=== PATIENT | female | born 1950 | race Caucasian/White ===

== ENCOUNTER 2019-07-22 08:42 | Outpatient (CLI) | payer MEDICARE, SELFPAY ==
--- NOTE | 2019-07-22 09:15 | USCV_ITS ---
Judith Mejia Age: 69 Gender: F : 1950 Exam Date: 07/22/2019 09:28 Ordering Phys: Roxy Hines NP Technologist: Lacey West [place] [facility] [place] STENOS[place] Risk Factors: Previous Vascular Surgery: Right Brachial BP: / Left Brachial BP: / Right Left Velocity (cm/s) Spectral Plaque Velocity (cm/s) Spectral Plaque Syst/Diast Broadening Syst/Diast Broadening 48.50/ 11.00 Prox CCA 93.90 / 9.30 68.40/ 19.80 Mid CCA 54.80 / 18.60 243.80/45.60 Distal CCA 86.40 / 22.30 93.50/ 12.90 Prox ICA 103.00/ 38.20 77.30/ 25.80 Mid ICA 99.20 / 30.50 75.70/ 29.00 Distal ICA 77.60 / 30.50 125.70 ECA 79.90 1.37 ICA/CCA 1.88 Antegrade Vertebral Antegrade 70.90/ 19.30 cm/s 16.50/ 7.10 cm/s Tri Subclavian Tri 54.80 28.60 FINDINGS Comparison:. 04/17/18. Diffuse bilateral scattered calcified plaque and intimal thickening throughout the right common carotid artery and extending through the bifurcation. Antegrade right vertebral artery. Known left subclavian to carotid artery bypass is patent. Extensive calcified plaque and small caliber left common, internal and external carotid artery. No significant stenosis. CONCLUSIONS No interval change in stenosis since prior exam. Diffuse atherosclerosis on the left without progression. Patent left carotid/subclavian graft. No significant stenosis. Dr. Caryn Alejandra DO (Electronically Signed) Final Date: 22 July 2019 10:49 S
== END 2019-07-22 08:43 | disposition home or self-care (01) ==
PROVIDERS: Family Provider Nurse Practitioner Family; PCP Nurse Practitioner Family; Visit Provider Nurse Practitioner Family
DX: I65.23 Occlusion and stenosis of bilateral carotid arteries (principal)
CPT/HCPCS: 93880

== ENCOUNTER 2020-10-13 11:31 | Outpatient (CLI) | payer MEDICARE, SELFPAY ==
--- NOTE | 2020-10-13 11:39 | XR_ITS ---
WS: [id number] RIGHT KNEE: 3 VIEW(S) TECHNIQUE: AP, oblique(s) and lateral. HISTORY: RIGHT KNEE PAIN COMPARISON: 03/03/2013 Moderate to severe narrowing of the medial compartment with progression of degenerative changes since 2012. Joint line osteophytes most significant at the medial compartment. Mild narrowing of the later al patellofemoral compartments chondrocalcinosis in the medial lateral compartments. No fracture. No joint effusion. Scattered atherosclerotic calcifications. XR/XR knee RT 3V* [id number] IMPRESSION: 1. Moderate to severe medial joint compartment osteoarthritis. 2. Chondrocalcinosis in the medial and lateral compartments.
--- NOTE | 2020-10-13 11:39 | XR_ITS ---
WS: [id number] CHEST 2 VIEWS HISTORY: UPPER RESPIRATORY INFECTION COMPARISON: 03/21/2019 Prior CABG. Lungs: Calcified granuloma in the mid LEFT lung. No pneumonia. No pleural effusion. Cardiac size: Normal. Mediastinum/Aorta: Mild atherosclerosis aorta. Bones: Normal. XR/XR chest 2V* [id number] IMPRESSION: 1. Stable chest with mild atherosclerosis aorta. 2. Prior CABG.
== END 2020-10-13 11:32 | disposition home or self-care (01) ==
PROVIDERS: PCP Nurse Practitioner Family; Visit Provider Clinical Nurse Specialist Adult Health
DX: J06.9 Acute upper respiratory infection, unspecified (principal); M25.561 Pain in right knee; M11.261 Other chondrocalcinosis, right knee; Z95.1 Presence of aortocoronary bypass graft; I70.0 Atherosclerosis of aorta
CPT/HCPCS: 71046; 73562

== ENCOUNTER → 2021-08-29 13:45 | Outpatient (BNVA) | payer MEDICARE, SELFPAY | PROVIDERS: PCP Nurse Practitioner Family; Referring Provider Nurse Practitioner Family; Visit Provider Specialist | DX: M17.11 Unilateral primary osteoarthritis, right knee (principal); M21.161 Varus deformity, not elsewhere classified, right knee; Z87.891 Personal history of nicotine dependence | CPT/HCPCS: 73560; 73565; 99204 ==

== ENCOUNTER 2021-09-02 15:18 | Outpatient (CLI) | payer MEDICARE, SELFPAY ==
--- NOTE | 2021-09-02 15:29 | MM_ITS ---
WS: [id number] VIEWS: MLO and CC views both breasts. 3D digital tomosynthesis is also included in this exam. Comparison made with prior exam of 12/03/2013, 12/22/2015,. Findings: There was no sign of mass, architectural distortion or suspicious calcification in either breast. He terogeneously dense MM/[place] [id number] Impression: BI-RADS: 2-Benign FOLLOW-UP: 1 Year Follow-up This mammogram was also analyzed by the Computer Aided Detection System R2 Imag e Roller Repairer.
--- NOTE | 2021-09-02 15:30 | XR_ITS ---
WS: [id number] DEXA (DUAL ENERGY X-RAY ABSORPTIOMETRY) Bone mineral density was performed using a Caviar machine. HISTORY: AGE-RELATED OSTEOPOROSIS WITHOUT CURRENT PATHOLOGICAL FRACTURE COMPARISON: 01/16/2018 Lumbar spine BMD (L1-L4): 1.369 g/cm2 T score: 1.6 Z score: 2.1 Total hip BMD: Left: 0.934 g/cm2. T score: -0.6 Z score: 0.2 Right: 0.912 g/cm2. T score: -0.8 Z score: 0.0 10 year probability of a major osteoporotic fracture is 15.9%. Compared to the prior study from 01/16/2018. Lumbar spine bone mineral density has increased by 2.4%. Bilateral hips bone mineral density has decrease by 6.1%. XR/XR DEXA axial skeleton* [id number] IMPRESSION: NORMAL BONE MINERAL DENSITY based upon the WHO classification for females. Since the prior examination there has been a significant decrease in bone miner helper al density within the hips and a slight significant increase of the bone minera l density in the lumbar spine.
== END 2021-09-02 15:19 | disposition home or self-care (01) ==
LOC: RAD 15:21
PROVIDERS: PCP Nurse Practitioner Family; Visit Provider Nurse Practitioner Family
DX: Z12.31 Encounter for screening mammogram for malignant neoplasm of breast (principal); M81.0 Age-related osteoporosis without current pathological fracture
CPT/HCPCS: 77063; 77067; 77080

== ENCOUNTER → 2021-09-29 12:33 | Outpatient (BNVA) | payer MEDICARE, SELFPAY | PROVIDERS: PCP Nurse Practitioner Family; Visit Provider Internal Medicine | DX: I25.10 Atherosclerotic heart disease of native coronary artery without angina pectoris (principal); I77.9 Disorder of arteries and arterioles, unspecified; I11.0 Hypertensive heart disease with heart failure; I50.9 Heart failure, unspecified; Z87.891 Personal history of nicotine dependence | CPT/HCPCS: 99204 ==

== ENCOUNTER 2021-10-07 10:14 | Outpatient (CLI) | payer MEDICARE, SELFPAY ==
[2021-10-07 11:10] LABS: Basophils # 0.1 10^3/uL (0.0-0.1); Basophils % 0.9 %; Eosinophils # 0.2 10^3/uL (0.0-0.8); Eosinophils % 4.3 %; Hematocrit 44.4 % (37.0-47.0); Hemoglobin 13.5 g/dL (11.5-15.3); Lymphocytes # 1.3 10^3/uL (0.8-4.8); Lymphocytes % 22.8 %; Mean Corpuscular HGB Conc 30.4 g/dL (30.0-36.0); Mean Corpuscular Hemoglobin 30.2 pg (28.0-34.0); Mean Corpuscular Volume 99.3 fl (81-99); Mean Platelet Volume 10.3 fL (7.4-10.4); Monocytes # 0.6 10^3/uL (0.2-0.9); Monocytes % 10.9 %; Neutrophils # 3.41 10^3/uL (1.8-7.7); Neutrophils % 60.7 %; Nucleated Red Blood Cells % 0 %; Platelet Count 217 10^3/cmm (130-400); Red Blood Count 4.47 10^6/uL (4.1-5.3); Red Cell Distribution Width 12.9 % (12.1-15.1); White Blood Count 5.6 10^3/uL (4.0-10.0)
[2021-10-07 11:35] LABS: Alanine Aminotransferase 17 U/L (0-33); Albumin Level 4.3 g/dL (3.5-5.2); Alkaline Phosphatase 102 IU/L (35-105); Blood Urea Nitrogen 24 mg/dL (8-23); Calcium 9.6 mg/dL (8.5-10.5); Carbon Dioxide 21 mmol/L (22-29); Chloride 103 mmol/L (98-107); Globulin 3.4 g/dL (1.3-4.6); Glucose 104 mg/dL (65-115); Osmolality Calculated 286 mOsm/kg (285-295); Sodium 136 mmol/L (136-145); Total Bilirubin 0.3 mg/dL (0.15-1.2); Total Protein 7.7 g/dL (6.6-8.7)
[2021-10-07 11:37] LABS: Anion Gap 16.9 (5-19); Potassium 4.9 mmol/L (3.5-5.1)
[2021-10-07 11:38] LABS: Aspartate Amino Transferase 26 U/L (0-32)
[2021-10-07 11:42] LABS: T3 Free 2.8 PG/ML (2.0-4.4)
[2021-10-07 12:25] LABS: Creatinine Urine, Random 270 mg/dL (28-217); Microalbum Creatinine Ratio Ur 11 mg/dL (0-20); Microalbumin Random Urine 3 ug/dL (0-20)
== END 2021-10-07 10:15 | disposition home or self-care (01) ==
PROVIDERS: PCP Nurse Practitioner Family; Visit Provider Nurse Practitioner Family
DX: I10 Essential (primary) hypertension (principal); E03.9 Hypothyroidism, unspecified
CPT/HCPCS: 80053; 82044; 84439; 84481; 85025

== ENCOUNTER 2022-01-13 06:00 | Outpatient (CLI) | payer MEDICARE, SELFPAY | END 2022-01-13 23:00 | disposition home or self-care (01) | LOC: RAD 03-13 12:41 | PROVIDERS: PCP Family Medicine; Visit Provider Internal Medicine | DX: E04.1 Nontoxic single thyroid nodule (principal); I10 Essential (primary) hypertension | CPT/HCPCS: 80053; 84443 ==

== ENCOUNTER 2022-02-23 13:46 | Outpatient (CLI) | payer MEDICARE, SELFPAY ==
--- NOTE | 2022-02-23 13:45 | USCV_ITS ---
Judith Mejia Age: 71 Gender: F : 1950 Exam Date: 02/23/2022 14:48 Ordering Phys: Tomy Levy M.D ([email or web address]) Technologist: Daryl Swenson Exam Location: [facility] – [place] Indication: sob BP: 134 / 82 HR: 52 Rhythm: Sinus Technical Quality: Adequate MEASUREMENTS (Male / Female) Normal Values 2D ECHO LV Diastolic Diameter PLAX 5.4 cm 4.2 - 5.9 / 3.9 - 5.3 cm LV Systolic Diameter PLAX 3.9 cm IVS Diastolic Thickness 0.7 cm 0.6 - 1.0 / 0.6 - 0.9 cm IVS Systolic Thickness 0.9 cm LVPW Diastolic Thickness 1.3 cm 0.6 - 1.0 / 0.6 - 0.9 cm LVPW Systolic Thickness 1.6 cm LVOT Diameter 2.0 cm LV Ejection Fraction 2D Teich 55.5 % LV Ejection Fraction MOD 2C 63.5 % LV Ejection Fraction 2C AL 64.2 % LA Diameter 4.0 cm LA Width 4.4 cm LA Height 4.2 cm RA Width 3.3 cm RA Height 3.9 cm Aorta at Sinotubular Diameter 2.1 cm M-MODE Aortic Annulus Diameter 2.3 cm LA Ao Ratio MM 2.0 MV E Point Septal Separation 0.5 cm DOPPLER AV Peak Velocity 149.7 cm/s LVOT Peak Velocity 124.0 cm/s AV Area Cont Eq vti 2.7 cm squared AV Area Cont Eq pk 2.6 cm squared MV Peak Velocity 115.0 cm/s MV Area PHT 5.4 cm squared Mitral E to A Ratio 1.1 MV E' Velocity 50.5 cm/s Mitral E to MV E' Ratio 7.7 Mitral E to LV E' Lateral Ratio 5.7 Mitral E to LV E' Septal Ratio 11.8 TR Peak Velocity 342.9 cm/s TR Peak Gradient 47.0 mmHg TR Mean Velocity 265.7 cm/s TR Mean Gradient 30.8 mmHg TR Velocity Time Integral 115.6 cm Right Atrial Pressure 8.0 mmHg Pulmonary Artery Systolic Pressu 55.0 mmHg PV Peak Velocity 100.0 cm/s RV Acceleration Time 0.1 s RV Ejection Time 0.4 s RV AcT/ET 0.3 FINDINGS Left Ventricle Left ventricle is mildly dilated. LV systolic function is normal with EF of 55 to 60%. No regional wall motion abnormalities are seen. Right Ventricle Normal in size and function Right Atrium Normal in size Left Atrium Normal in size Mitral Valve Structurally normal mitral valve. Mild mitral valve regurgitation. Aortic Valve Structurally normal aortic valve. No significant stenosis or regurgitation. Tricuspid Valve Mild tricuspid regurgitation. RVSP is 50-55mmHg. This is consistent with moderate pulmonary hypertension. Pulmonic Valve Not well visualized. Trace pulmonic regurgitation. Pericardium Normal Aorta Normal in size IVC Not well visualized CONCLUSIONS Left ventricle is mildly dilated. LV systolic function is normal with EF 55 to 60%. Mild mitral regurgitation Mild tricuspid regurgitation. Moderate pulmonary hypertension Trace pulmonic regurgitation. Compared to prior echocardiogram 2017, no significant changes are seen Tomy Levy MD (Electronically Signed) Final Date: 25 February 2022 20:31 S
--- NOTE | 2022-02-23 14:30 | USCV_ITS ---
Judith Mejia Age: 71 Gender: F : 1950 Exam Date: 02/23/2022 15:13 Ordering Phys: Tomy Levy M.D ([email or web address]) Technologist: Daryl Swenson [place] [facility] [place]: carotid artery disease Risk Factors: Previous Vascular Surgery: Left subclavian/ carotid bypass graft Right Brachial BP: / Left Brachial BP: / Right Left Velocity (cm/s) Spectral Plaque Velocity (cm/s) Spectral Plaque Syst/Diast Broadening Syst/Diast Broadening 111.70/17.10 Prox CCA 188.30/ 24.30 58.50/ 13.10 Mid CCA 278.00/ 38.70 61.80/ 9.20 Distal CCA 119.60/ 23.30 106.60/16.50 Prox ICA 155.40/ 37.30 67.70/ 19.70 Mid ICA 194.20/ 43.50 78.50/ 18.60 Distal ICA 139.80/ 29.50 95.10 ECA 99.40 1.16 ICA/CCA 0.70 Antegrade Vertebral 74.60/ 17.10 cm/s / cm/s Tri Subclavian Tri 108.1 125.7 0 0 FINDINGS Comparison:. 04/17/18, 07/22/19. Moderate bilateral plaque, left greater than right. No right ICA stenosis. Left subclavian to carotid artery bypass graft is reidentified and patent. Minimal elevation of velocity involving distal graft to carotid artery. Mild left carotid plaque. Increasing plaque and velocity in the left ICA. Prevertebral steal left waveform. CONCLUSIONS Patent left subclavian artery to carotid bypass graft. Increasing velocity and plaque in the left ICA. Continued close follow up to ensure no significant developing stenosis. Left ICA stenosis 50-69%. Right ICA stenosis < 50%. Prevertebral steal waveform left vertebral artery. Dr. Caryn Alejandra DO (Electronically Signed) Final Date: 23 February 2022 16:31 S
== END 2022-02-23 13:47 | disposition home or self-care (01) ==
LOC: RAD 13:46
PROVIDERS: PCP Family Medicine; Visit Provider Internal Medicine
DX: R06.02 Shortness of breath (principal); I25.10 Atherosclerotic heart disease of native coronary artery without angina pectoris; I65.23 Occlusion and stenosis of bilateral carotid arteries; I08.1 Rheumatic disorders of both mitral and tricuspid valves; I27.20 Pulmonary hypertension, unspecified
CPT/HCPCS: 93306; 93880

== ENCOUNTER 2022-08-04 06:57 | Outpatient (CLI) | payer MEDICARE, SELFPAY ==
--- NOTE | 2022-08-04 07:15 | USCV_ITS ---
Jackie Judith Age: 72 Gender: F : 1950 Exam Date: 08/04/2022 07:35 Ordering Phys: Tomy Levy M.D ([email or web address]) Technologist: CT Exam Location: [facility] [place] Indication: stenosis Risk Factors: Previous Vascular Surgery: Right Brachial BP: / Left Brachial BP: / Right Left Velocity (cm/s) Spectral Plaque Velocity (cm/s) Spectral Plaque Syst/Diast Broadening Syst/Diast Broadening 53.60/ 13.40 Prox CCA 122.70/ 20.00 80.40/ 15.60 Mid CCA 122.60/ 19.40 254.30/39.70 Distal CCA 81.30 / 18.10 117.40/18.20 Prox ICA 145.00/ 40.40 85.30/ 19.40 Mid ICA 152.40/ 38.90 99.50/ 22.40 Distal ICA 160.10/ 28.80 133.10 ECA 83.90 0.46 ICA/CCA 1.31 Vertebral 95.40/ 13.30 cm/s 17.60/ 15.40 cm/s Subclavian 93.70 116.9 0 FINDINGS Pt Hx of Rt Cea and bypass graft on left from subclavian to prx cca. The graft is patent and without complication. Some areas are shadowed from anterior plq. Very similar to previous Comparison 03/04 CONCLUSIONS Bypass graft is patent from subclavian to proximal CCA on left. Mild to moderate shadowing plaque. Bypass graft remains patent. Dense shadowing calcified atheromatous plaque Left CCA with stenosis in the mid and distal CCA. This could be further evaluated with CTA. Right ICA stenosis <50%. Moderate atheromatous plaque right carotid bulb/ICA. Left ICA stenosis 50-69% based on strict velocity criteria at the lower end of the range. Moderate atheromatous plaque left carotid bulb/ICA. Normal antegrade Doppler flow noted in the right vertebral artery. Biphasic Doppler flow noted in the left vertebral artery due to subclavian graft. Everett Pringle MD (Electronically Signed) Final Date: 04 August 2022 10:19 S
== END 2022-08-04 06:58 | disposition home or self-care (01) ==
LOC: RAD 07:00
PROVIDERS: PCP Family Medicine; Visit Provider Internal Medicine
DX: I65.23 Occlusion and stenosis of bilateral carotid arteries (principal)
CPT/HCPCS: 93880; 99214

== ENCOUNTER → 2022-10-06 09:22 | Outpatient (BNVA) | payer MEDICARE, SELFPAY | PROVIDERS: PCP Family Medicine; Visit Provider Family Medicine | DX: E03.9 Hypothyroidism, unspecified (principal); E78.00 Pure hypercholesterolemia, unspecified; N18.30 Chronic kidney disease, stage 3 unspecified | CPT/HCPCS: 80048; 80061; 84443 ==

== ENCOUNTER → 2023-01-04 16:15 | Outpatient (BNVA) | payer MEDICARE, SELFPAY | PROVIDERS: PCP Family Medicine; Visit Provider Internal Medicine | DX: R07.9 Chest pain, unspecified (principal); R00.1 Bradycardia, unspecified; I65.23 Occlusion and stenosis of bilateral carotid arteries; I25.10 Atherosclerotic heart disease of native coronary artery without angina pectoris; I11.0 Hypertensive heart disease with heart failure; I50.9 Heart failure, unspecified; Z87.891 Personal history of nicotine dependence | CPT/HCPCS: 93005; 99214 ==

== ENCOUNTER 2023-01-25 06:54 | Outpatient (CLI) | payer MEDICARE, SELFPAY ==
[2023-01-25 07:08] VITALS: BMI 33.9
--- NOTE | 2023-01-25 07:08 | ECG_ITS ---
[facility] Test Date: 2023-01-25 Pat Name: Judith Mejia Department: Room: Gender: Female Therapeutic Activities Services Worker: Akashberto Preston : 1950 Requested By: Tomy Levy Order Number: [id number] Narendra MD: Tomy Levy M.D. Interpretive Statements NAME OF STUDY: LEXISCAN SESTAMIBI STRESS TEST INDICATION: [Chest Pain; Shortness of Breath, ] Procedure: At the baseline, the blood pressure was 111/88 mmHg with a heart rate of 52 bpm. The electrocardiogram showed sinus bradycardia, normal axis with normal ST and T's. The Lexiscan was infused over a period of 20 seconds. A total of 0.4 mg of Lexiscan was infused. The stress phase was continued for a total of 5 minutes. Heart rate was at the end of stress phase was 67 bpm and a blood pressure of 162/83mmHg. The EKG at the peak infusion revealed normal sinus rhythm with no significant ST-T wave changes. Sestamibi was injected 20 seconds after the Lexiscan infusion. Blood pressure at the end of recovery phase was 160/76 mmHg with a heart rate of 63 bpm. Conclusion: 1. Normal EKG response to Lexiscan infusion 2. No Lexiscan induced chest pain or cardiac arrhythmia. 3. Normal blood pressure and heart rate response. 4. Sestamibi/sestamibi perfusion scan pending; see separate report. Electronically Signed On 02-08-2023 14:14:38 CDT by Tomy Levy M.D. [id number]
--- NOTE | 2023-01-25 07:09 | NMCV_ITS ---
NM bebeto perf SPECT r/s* [id number] Judith Mejia Age: 72 Gender: F : 1950 Exam Date: 01/25/2023 07:54 Ordering Phys: Tomy Levy M.D ([email or web address]) Technologist: KELVIN Meyer Exam Location: [facility] Indications: CHEST PAIN, SHORTNESS OF BREATH STRESS TEST Please [facility] IMAGE PROTOCOL Rest/Stress 1 Lexiscan Day Radiopharmaceutical Dose (mCi) Administration Site Administered by Rest: Tc-99m 10.7 IV KELVIN Meyer Sestamibi Stress:Tc-99m 32.6 IV KELVIN Diaz Sestamibi Rest: 25-Jan-2023 60 Discovery 630 Stress: 25-Jan-2023 30 Discovery 630 0.4mg Lexiscan. Images obtained in supine and prone position. SPECT RESULTS Technical Quality: Excellent Raw Data Analysis: Normal Image Corrections: No attenuation or motion correction applied Summed Stress Score: 10 Summed Rest Score: 7 Summed Difference Score: 3 PERFUSION FINDINGS There is a large in size, mostly fixed perfusion defect noted in the inferior and inferolateral joel. Large sized areas of prior infarcts in RCA and left circumflex artery territories with minimal melanie-infarct ischemia. Attenuation artifact can not well visualized. FUNCTIONAL RESULTS (calculated via Gated SPECT) Stress Image LV EF (%): 66 Stress EDV (mL):88 TID: 1.04 Stress ESV (mL):30 FUNCTIONAL FINDINGS: There is normal left ventricular systolic function. IMPRESSIONS 1. Abnormal myocardial perfusion imaging with large sized prior infarct with minimal melanie-infarct ischemia noted in the RCA and left circumflex artery territories. Attenuation artifact can not be ruled out. 2. LV systolic function is normal Tomy Levy MD (Electronically Signed) Final Date: 29 January 2023 11:32 S
[2023-01-25] MEDS: regadenoson 0.4 Mg/5 ml Syringe IVP (08:35)
[2023-01-25 08:57] VITALS: BP 160/76; PULSE 63
== END 2023-01-25 06:55 | disposition home or self-care (01) ==
PROVIDERS: PCP Family Medicine; Visit Provider Internal Medicine
DX: R07.9 Chest pain, unspecified (principal); R06.02 Shortness of breath
CPT/HCPCS: 36415; 78452; 93017; 96374; A9500; J2785

== ENCOUNTER 2023-01-26 08:14 | Outpatient (CLI) | payer MEDICARE, SELFPAY ==
--- NOTE | 2023-01-26 08:30 | CT_ITS ---
WS: [id number] CT ANGIOGRAM CAROTID ARTERIES HISTORY: Carotid stenosis TECHNIQUE: CT angiogram is performed of the carotid arteries. During arterial injection imaging is ob tained from the skull base to the aortic arch in 1.25 mm imaging. Coronal and sagittal reformats are submitted, MIP imaging also reviewed. Additional multiplanar reformats of the carotid arteries are lyons bmitted. NASCET criteria utilized. All CT scans at [facility] use at least one of these dose optimization techniques: automated exposure control; mA and/or kV adjustment per patient size (includ es targeted exams where dose is matched to clinical indication); or iterative reconstruction. CONTRAST: Omnipaque 350; 100 mL IV. DLP: 308.89 COMPARISON: 06/08/2014. Prior carotid Doppler 08/04/2022 Right carotid: Common carotid artery: Tortuous common carotid artery with plaque but no high-grade stenosis. No ulce rated plaque. Increasing near circumferential plaque towards the bifurcation. Distal RIGHT common car otid artery stenosis approximately 61%. Less plaque at the bifurcation. Bifurcation is intact. Internal carotid artery: Minimal plaque. No stenosis. External carotid artery: Patent. Left carotid: Common carotid artery: Small amount of plaque at the origin of the LEFT common carotid artery. There is tortuosity of the common carotid artery. 50% stenosis, carotid artery proximal to the anastomosis. There is a graft extending from the LEFT subclavian to the LEFT common carotid artery. Common caroti d artery is patulous at the site of the anastomosis. Increasing plaque towards the carotid bifurcatio n. Internal carotid artery: High density plaque with at least 70% stenosis involving the proximal LEFT I CA. Long segment area of plaque. External carotid artery: Patent. Right vertebral artery: Mild plaque. Dominant. Left vertebral artery: Small caliber with limited flow. There is decreased contrast opacification thr oughout the vertebral artery. Very limited contrast opacification. Subclavian arteries: Mild atherosclerosis RIGHT subclavian artery. Despite the plaque no high-grade s tenosis. LEFT subclavian artery is not visualized proximally. Carotid to subclavian graft is still pa tent. There is contrast noted distal to the anastomosis. Upper thorax: Atherosclerotic plaque within the thoracic aorta. Thyroid gland: Calcified RIGHT thyroid nodule 10 mm. Osseous structures: Unremarkable. Skull base: Negative IMPRESSION: 1. LEFT common carotid artery to subclavian artery bypass graft is patent. There is increasing plaqu e with 50% stenosis in the distal graft. Very similar to the prior study from 2015. 2. High-grade stenosis of at least 70% involving the proximal LEFT ICA. Progression of stenosis sinc e the prior study. 3. Distal RIGHT common carotid artery stenosis 61% with mild progression. 4. Very small caliber and low flow throughout the LEFT vertebral artery.
[2023-01-26 08:48] LABS: Blood Urea Nitrogen 15 mg/dL (8-23)
[2023-01-26] MEDS: iohexol 350 mg/mL 500 mL Btl (per mL) IV (08:58)
== END 2023-01-26 08:15 | disposition home or self-care (01) ==
PROVIDERS: PCP Family Medicine; Visit Provider Internal Medicine
DX: I65.23 Occlusion and stenosis of bilateral carotid arteries (principal); I77.9 Disorder of arteries and arterioles, unspecified
CPT/HCPCS: 70498; 82565; 84520; Q9967

== ENCOUNTER 2023-02-21 09:15 | Outpatient (CLI) | payer MEDICARE, SELFPAY ==
--- NOTE | 2023-02-21 09:30 | USCV_ITS ---
Judith Mejia Age: 72 Gender: F : 1950 Exam Date: 02/21/2023 09:29 Ordering Phys: Tomy Levy M.D ([email or web address]) Technologist: FABI Exam Location: [facility] [place] Indication: Bilateral Stenosis Risk Factors: Previous Vascular Surgery: Graft Placement Right Brachial BP: / Left Brachial BP: / Right Left Velocity (cm/s) Spectral Plaque Velocity (cm/s) Spectral Plaque Syst/Diast Broadening Syst/Diast Broadening 69.00/ 10.50 Prox CCA 121.70/ 24.00 63.40/ 13.90 Mid CCA 163.60/ 29.70 53.10/ 9.10 Distal CCA 178.40/ 31.90 112.20/21.70 Prox ICA 122.30/ 27.00 84.50/ 19.30 Mid ICA 120.50/ 36.00 83.30/ 18.10 Distal ICA 138.50/ 37.80 102.20 ECA 99.90 1.63 ICA/CCA 0.78 Antegrade Vertebral Antegrade 77.20/ 18.10 cm/s 25.40/ 7.70 cm/s Tri Subclavian Tri 126.7 105.8 0 0 FINDINGS Comparison:. 08/04/22 Mild elevation of systolic and diastolic velocities. Left subclavian to common carotid artery bypass graft is intact. Wavefrom is abnormal, probably due to vertical orientation of graft. Mild bilateral carotid atherosclerotic plaque. Antegrade vertebral arteries. CONCLUSIONS Bilateral ICA stenosis less than 50%. Patent left subclavian to CCA bypass graft. Mild bilateral carotid plaque. Dr. Caryn Alejandra DO (Electronically Signed) Final Date: 21 February 2023 11:14 S
== END 2023-02-21 09:16 | disposition home or self-care (01) ==
PROVIDERS: PCP Family Medicine; Visit Provider Internal Medicine
DX: I65.23 Occlusion and stenosis of bilateral carotid arteries (principal)
CPT/HCPCS: 93880

== ENCOUNTER 2023-03-08 12:36 | Outpatient (CLI) | payer MEDICARE, SELFPAY ==
--- NOTE | 2023-03-08 12:50 | XR_ITS ---
WS: [id number] Exam: XR chest 2V* [id number] Date/Time of Exam: 03/08/2023 12:50 PM Reason For Exam: chest pain, cough Comparison 10/13/2020. The lungs are clear and fully inflated. Normal cardiomediastinal silhouette. Signs of previous CABG s urgery. Degenerative changes of both shoulders. IMPRESSION: 1. No acute cardiopulmonary finding.
== END 2023-03-08 12:37 | disposition home or self-care (01) ==
LOC: RAD 12:39
PROVIDERS: PCP Family Medicine; Visit Provider Family Medicine
DX: R05.3 Chronic cough (principal); R07.9 Chest pain, unspecified
CPT/HCPCS: 71046

== ENCOUNTER → 2023-04-26 09:58 | Outpatient (BNVA) | payer MEDICARE, SELFPAY | PROVIDERS: PCP Family Medicine; Visit Provider Internal Medicine Pulmonary Disease | DX: I50.9 Heart failure, unspecified (principal); R05.3 Chronic cough; T78.40XA Allergy, unspecified, initial encounter; R06.02 Shortness of breath; Z87.891 Personal history of nicotine dependence | CPT/HCPCS: 36415; 82785; 85025; 86003; 99204 ==

== ENCOUNTER 2023-05-03 07:36 | Outpatient (CLI) | payer MEDICARE, SELFPAY ==
--- NOTE | 2023-05-03 08:00 | CT_ITS ---
WS: [id number] LDCT LUNG CANCER SCREENING TECHNIQUE: Noncontrast CT of the chest with coronal and sagittal reformatted images. CLINICAL INFORMATION: Cancer Screen COMPARISON: CT chest 2019 DLP: 119.81 mGy.cm DIvol: Mean CTDIvol: 2.80 (mGy) All CT scans at [facility] use at least one of these dose optimization techniques: automat ed exposure control; mA and/or kV adjustment per patient size (includes targeted exams where dose is matched to clinical indication); or iterative reconstruction. FINDINGS: Lungs are well aerated. No acute pulmonary infiltrates. Calcite granuloma LEFT upper lobe. A few tiny subpleural nodules in the RIGHT upper lobe and RIGHT lower lobe. Subsegmental ectasis RIGH T upper lobe. .Noncalcified nodule LEFT lower lobe measuring 6 mm. Sternotomy. CABG. Calcified RIGHT thyroid nodule. This is unchanged since 2019. Normal caliber thorac ic aorta. Aortic calcification. No mediastinal or hilar lymphadenopathy. No axillary lymphadenopathy. Cholecystectomy clips. Adrenal glands are normal. Normal GE junction. Thoracic curve. Hypertrophic ch anges thoracic spine. IMPRESSION: CT/CT lung screening [id number] LUNG-RADS: 2-Benign Appearance or Behavior FOLLOW UP: 12 Month: Continue annual screening with LDCT
== END 2023-05-03 07:37 | disposition home or self-care (01) ==
LOC: RAD 07:36
PROVIDERS: PCP Family Medicine; Visit Provider Internal Medicine Pulmonary Disease
DX: Z12.2 Encounter for screening for malignant neoplasm of respiratory organs (principal); Z87.891 Personal history of nicotine dependence
CPT/HCPCS: 71271

== ENCOUNTER → 2023-07-12 15:03 | Outpatient (BNVA) | payer MEDICARE, SELFPAY | PROVIDERS: PCP Family Medicine; Visit Provider Internal Medicine | DX: I25.10 Atherosclerotic heart disease of native coronary artery without angina pectoris (principal); I13.0 Hypertensive heart and chronic kidney disease with heart failure and stage 1 through stage 4 chronic kidney disease, or unspecified chronic kidney disease; N18.30 Chronic kidney disease, stage 3 unspecified; I50.9 Heart failure, unspecified; Z87.891 Personal history of nicotine dependence | CPT/HCPCS: 99214 ==

== ENCOUNTER → 2023-08-06 11:20 | Outpatient (BNVA) | payer MEDICARE, SELFPAY | PROVIDERS: PCP Family Medicine; Referring Provider Internal Medicine; Visit Provider Thoracic Surgery (Cardiothoracic Vascular Surgery) | DX: I65.23 Occlusion and stenosis of bilateral carotid arteries (principal); Z87.891 Personal history of nicotine dependence; I13.0 Hypertensive heart and chronic kidney disease with heart failure and stage 1 through stage 4 chronic kidney disease, or unspecified chronic kidney disease; N18.30 Chronic kidney disease, stage 3 unspecified; I50.9 Heart failure, unspecified | CPT/HCPCS: 99203 ==

== ENCOUNTER 2023-08-21 12:41 | Outpatient (CLI) | payer MEDICARE, SELFPAY ==
--- NOTE | 2023-08-21 13:00 | USCV_ITS ---
Judith Mejia Age: 73 Gender: F : 1950 Exam Date: 08/21/2023 13:06 Ordering Phys: Chun Navarro MD (Andy) [place][email or web address] [place] Technologist: ELIZ Exam Location: [facility] – [place] Indication: Known graft from lt subclavian to lt cca. Pt also has had rt endarectomy and states also on lt. Risk Factors: Unknown Previous Vascular Surgery: Pt states Rt and Lt endarectomy then another Right Brachial BP: / Left Brachial BP: / Right Left Velocity (cm/s) Spectral Plaque Velocity (cm/s) Spectral Plaque Syst/Diast Broadening Syst/Diast Broadening 58.20/ 15.40 Prox CCA 164.70/ 14.30 82.00/ 19.90 Mid CCA 166.40/ 17.80 251.70/31.70 Distal CCA 133.80/ 17.80 145.70/17.20 Prox ICA 78.70 / 11.40 76.10/ 20.20 Mid ICA 117.20/ 28.70 74.40/ 16.80 Distal ICA 119.00/ 24.80 182.00 ECA 72.80 0.60 ICA/CCA 0.90 Antegrade Vertebral Antegrade 1060 / 8.20 cm/s 17.50/ 0.00 cm/s 0.00 Bi Subclavian Bi 106.5 48.00 0 FINDINGS Comparison:. 02/21/23 Diffuse bilateral scattered calcified plaque and intimal thickening throughout the common carotid arteries and extending through the bifurcation. Extensive plaque with luminal narrowing bilateral and diffuse. Loss of diastolic waveform in the left subclavian to carotid artery. The lumen of the graft is difficult to visualize. Velocities in the common and proximal ICA's is increasing. CONCLUSIONS Progression of diffuse carotid plaque with increasing velocities. Abnormal waveform in the left subclavian to carotid artery graft Recommend CTA of carotid arteries to better visualize disease progression. Dr. Caryn Alejandra DO (Electronically Signed) Final Date: 22 August 2023 07:51 S
== END 2023-08-21 12:42 | disposition home or self-care (01) ==
LOC: RAD 12:41
PROVIDERS: PCP Family Medicine; Visit Provider Thoracic Surgery (Cardiothoracic Vascular Surgery)
DX: I65.23 Occlusion and stenosis of bilateral carotid arteries (principal)
CPT/HCPCS: 93880

== ENCOUNTER 2023-10-12 08:34 | Outpatient (CLI) | payer MEDICARE, SELFPAY ==
--- NOTE | 2023-10-12 09:45 | USCV_ITS ---
Judith Mejia Age: 73 Gender: F : 1950 Exam Date: 10/12/2023 09:22 Ordering Phys: Ana Rodrgiuez MD Technologist: Kojo Gaines [place] [facility] [place]ication: PAD RIGHT LEFT Brachial 186.00 mmHg Brachial 181.00 mmHg Pressure (mmHg) Waveform Pressure (mmHg) Waveform 194.00 TRANSIT DEPARTMENT CLERK 207.00 195.00 DPA 189.00 1.05 Ankle/Brachial Index 1.11 116.00 Pre-Exercise Toe Pressure 145.00 0.62 Pre-Exercise Toe/Brachial Index 0.78 FINDINGS Resting GUSTAVO 1.05 on the right side and 1.11 on the left side Resting TBI 0.62 on the right and 0.72 on the left CONCLUSIONS 1. Normal resting GUSTAVO with a slightly diminished resting TBI on the right side, suggesting of mild peripheral artery disease 2. Normal resting GUSTAVO and TBI on the left side suggesting no significant arterial obstruction Dr Mica Baron MD [facility] (Electronically Signed) Final Date: 15 October 2023 08:17 S
== END 2023-10-12 08:35 | disposition home or self-care (01) ==
LOC: RAD 08:34
PROVIDERS: PCP Family Medicine; Visit Provider Family Medicine
DX: I73.9 Peripheral vascular disease, unspecified (principal); K21.9 Gastro-esophageal reflux disease without esophagitis; K59.04 Chronic idiopathic constipation; R10.13 Epigastric pain
CPT/HCPCS: 93922; 99204

== ENCOUNTER → 2024-01-08 14:30 | Outpatient (BNVA) | payer MEDICARE, SELFPAY | PROVIDERS: PCP Family Medicine; Visit Provider Internal Medicine | DX: I25.10 Atherosclerotic heart disease of native coronary artery without angina pectoris (principal); I13.0 Hypertensive heart and chronic kidney disease with heart failure and stage 1 through stage 4 chronic kidney disease, or unspecified chronic kidney disease; N18.30 Chronic kidney disease, stage 3 unspecified; I50.9 Heart failure, unspecified; I65.23 Occlusion and stenosis of bilateral carotid arteries; Z87.891 Personal history of nicotine dependence | CPT/HCPCS: 99214 ==

== ENCOUNTER 2024-02-20 14:32 | Outpatient (CLI) | payer MEDICARE, SELFPAY ==
--- NOTE | 2024-02-20 14:37 | XR_ITS ---
WS: [id number] XR KUB [id number] REASON FOR EXAM: upper abd pain FINDINGS: No free air or retroperitoneal air. Unremarkable bowel gas pattern. No mass or organomegaly. No urinary tract calculi. XR/XR KUB [id number] IMPRESSION: No acute abnormality.
--- NOTE | 2024-02-20 14:37 | XR_ITS ---
WS: [id number] XR chest 2V* [id number] REASON FOR EXAM: cough, chest pain FINDINGS: The chest is unchanged compared to 03/08/2023. Sternotomy with previous aorto coronary artery bypass surgery. Calcified granulomas disease in both hemithoraces. No focal lung lesion. No acute pulmonary parenchymal or pleural abnormality. Moderate degenerative spondylosis in the mid and lower thoracic spine. XR/XR chest 2V* [id number] IMPRESSION: Stable chest without acute abnormality.
== END 2024-02-20 14:33 | disposition home or self-care (01) ==
LOC: RAD 14:34
PROVIDERS: PCP Family Medicine; Visit Provider Family Medicine
DX: R10.9 Unspecified abdominal pain (principal); R06.02 Shortness of breath; R05.3 Chronic cough; R07.9 Chest pain, unspecified
CPT/HCPCS: 71046; 74018; 80053; 80061; 82306; 82607; 83735; 84443; 85025

== ENCOUNTER 2024-03-31 14:05 | Outpatient (CLI) | payer MEDICARE, SELFPAY ==
--- NOTE | 2024-03-31 14:15 | CT_ITS ---
WS: [id number] CT ANGIOGRAM CAROTID ARTERIES HISTORY: followup abnormal ultrasound TECHNIQUE: CT angiogram is performed of the carotid arteries. During arterial injection imaging is ob tained from the skull base to the aortic arch in 1.25 mm imaging. Coronal and sagittal reformats are submitted, MIP imaging also reviewed. Additional multiplanar reformats of the carotid arteries are lyons bmitted. NASCET criteria utilized. All CT scans at [facility] use at least one of these dose optimization techniques: automated exposure control; mA and/or kV adjustment per patient size (includ es targeted exams where dose is matched to clinical indication); or iterative reconstruction. CONTRAST: Omnipaque 350; 100 mL IV. DLP: 278.01 mGy.cm COMPARISON: Carotid ultrasound 08/21/2023, CT angiogram neck 01/26/2023 Right carotid: Common carotid artery: Mildly tortuous carotid artery arises normally from the innominate. Scattered plaque. Long segment area of densely calcified plaque. High-grade stenosis in the distal common cervi virgilio carotid artery. Stenosis calculated at 78% which represents a progression of stenosis since the p rior exam. Internal carotid artery: Bifurcation is intact with less plaque. External carotid artery: Patent. 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 The graft itself appears to be patent with mild plaque. There is a small tiny ulcerated plaque along the mid gr aft. Internal carotid artery: Heavily calcified calcification in the LEFT ICA. Stenosis calculated at 70%. External carotid artery: Patent. Right vertebral artery: Dominant. Left vertebral artery: Small caliber and does arise from a heavily diseased LEFT subclavian artery. S imilar to the prior exam. 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 Upper thorax: Normal. Thyroid gland: Normal. Osseous structures: Cervical spondylosis. Skull base: Negative. CT/CT angio neck [id number] IMPRESSION: 1. Patent LEFT subclavian to LEFT common carotid artery graft. There is athero sclerotic plaque but there is no significant stenosis developed in the interval . Stenosis estimated near 50%. 2. Distal RIGHT common carotid artery stenosis estimated at 78% which represen ts a slight increase since the prior study. 3. LEFT ICA stenosis estimated at 70%, unchanged. 4. Very small caliber LEFT vertebral artery. LEFT vertebral artery arises from the heavily diseased LEFT subclavian artery. No change.
== END 2024-03-31 14:06 | disposition home or self-care (01) ==
LOC: RAD 14:06
PROVIDERS: PCP Family Medicine; Visit Provider Family Medicine
DX: I65.23 Occlusion and stenosis of bilateral carotid arteries (principal); Z95.828 Presence of other vascular implants and grafts
CPT/HCPCS: 70498

== ENCOUNTER 2024-04-02 08:06 | Outpatient (CLI) | payer MEDICARE, SELFPAY ==
--- NOTE | 2024-04-02 | ECG_ITS ---
[facility] Pat Name: Judith Mejia Department: Room: Gender: Female Pm Technician: : 1950 Requested By: Tomy Levy Order Number: [id number] Narendra MD: Tomy Levy M.D. Interpretive Statements LEXISCAN SESTAMIBI STRESS TEST Procedure: At the baseline, the blood pressure was 157/78 mmHg with a heart rate of 53 bpm. The electrocardiogram showed sinus bradycardia, normal axis with normal ST and T's. The Lexiscan was infused over a period of 20 seconds. A total of 0.4 mg of Lexiscan was infused. The stress phase was continued for a total of 5 minutes. Heart rate was at the end of stress phase was 66 bpm and a blood pressure of 148/86 mmHg. The EKG at the peak infusion revealed normal sinus rhythm with no significant ST-T wave changes. Sestamibi was injected 20 seconds after the Lexiscan infusion. Blood pressure at the end of recovery phase was 142/82 mmHg with a heart rate of 61 bpm. Conclusion: 1. Normal EKG response to Lexiscan infusion 2. No Lexiscan induced chest pain or cardiac arrhythmia. 3. Normal blood pressure and heart rate response. 4. Sestamibi/sestamibi perfusion scan pending; see separate report. Electronically Signed On 04-13-2024 19:17:29 PERINATOLOGY PHYSICIAN by Tomy Levy M.D. [id number]
[2024-04-02 08:15] VITALS: BMI 33.6
--- NOTE | 2024-04-02 09:42 | NMCV_ITS ---
NM bebeto perf SPECT r/s* [id number] Judith Mejia Age: 73 Gender: F : 1950 Exam Date: 04/02/2024 09:53 Ordering Phys: Tomy Levy M.D ([email or web address]) Technologist: KELVIN Diaz Exam Location: [facility] Indications: CP STRESS TEST Please see separate stress test report in [facility] for full findings IMAGE PROTOCOL Rest/Stress 1 Lexiscan Day Radiopharmaceutical Dose (mCi) Administration Site Administered by Rest: Tc-99m 10.6 IV KELVIN Diaz Sestamibi Stress:Tc-99m 32.1 IV KELVIN Diaz Sestamibi Rest: 02-Apr-2024 60 Discovery 630 Stress: 02-Apr-2024 30 Discovery 630 0.4mg Lexiscan. Images obtained in supine and prone position. SPECT RESULTS Technical Quality: Good Raw Data Analysis: Breast attenuation Image Corrections: No attenuation or motion correction applied Summed Stress Score: 10 Summed Rest Score: 14 Summed Difference Score: 0 PERFUSION FINDINGS Large areas of fixed perfusion defects seen in inferior and inferolateral joel. This is consistent with large areas of prior infarcts in RCA and left circumflex artery territories. FUNCTIONAL RESULTS (calculated via Gated SPECT) Stress Image LV EF (%): 67 Stress EDV (mL):108 TID: 1.16 Stress ESV (mL):36 FUNCTIONAL FINDINGS: There is normal left ventricular systolic function. IMPRESSIONS 1. Large areas of prior infarct seen in RCA and left circumflex artery territories. 2. LV systolic function is normal Tomy Levy MD (Electronically Signed) Final Date: 02 April 2024 13:00 S
[2024-04-02] MEDS: regadenoson 0.4 Mg/5 ml Syringe IVP (10:01)
[2024-04-02 10:11] VITALS: BP 142/82; PULSE 61
== END 2024-04-02 08:07 | disposition home or self-care (01) ==
PROVIDERS: PCP Family Medicine; Visit Provider Internal Medicine
DX: R07.9 Chest pain, unspecified (principal); R94.39 Abnormal result of other cardiovascular function study; R06.02 Shortness of breath
CPT/HCPCS: 36415; 78452; 93017; 96374; A9500; J2785

== ENCOUNTER → 2024-04-14 14:30 | Outpatient (BNVA) | payer MEDICARE, SELFPAY | PROVIDERS: PCP Family Medicine; Visit Provider Family Medicine | DX: E55.9 Vitamin D deficiency, unspecified (principal); I65.23 Occlusion and stenosis of bilateral carotid arteries; I25.10 Atherosclerotic heart disease of native coronary artery without angina pectoris; I10 Essential (primary) hypertension; F32.A Depression, unspecified | CPT/HCPCS: 82306 ==

== ENCOUNTER → 2024-08-21 14:57 | Outpatient (BNVA) | payer MEDICARE, SELFPAY | PROVIDERS: PCP Family Medicine; Visit Provider Internal Medicine Cardiovascular Disease | DX: R07.89 Other chest pain (principal); I25.118 Atherosclerotic heart disease of native coronary artery with other forms of angina pectoris; I73.9 Peripheral vascular disease, unspecified; I65.29 Occlusion and stenosis of unspecified carotid artery; I12.9 Hypertensive chronic kidney disease with stage 1 through stage 4 chronic kidney disease, or unspecified chronic kidney disease; N18.30 Chronic kidney disease, stage 3 unspecified; Z79.82 Long term (current) use of aspirin; Z95.1 Presence of aortocoronary bypass graft; R58 Hemorrhage, not elsewhere classified; R07.9 Chest pain, unspecified; R06.02 Shortness of breath | CPT/HCPCS: 99214 ==

== ENCOUNTER → 2024-08-21 16:13 | Outpatient (BNVA) | payer MEDICARE, SELFPAY | PROVIDERS: PCP Family Medicine; Visit Provider Internal Medicine Cardiovascular Disease | DX: I10 Essential (primary) hypertension (principal); R06.02 Shortness of breath; R58 Hemorrhage, not elsewhere classified; R07.9 Chest pain, unspecified; I20.0 Unstable angina | CPT/HCPCS: 36415; 80048; 85025; 85610 ==

== ENCOUNTER 2024-09-03 07:30 | Outpatient (CLI) | payer MEDICARE, SELFPAY ==
[2024-09-03] VITALS (33 sets, daily range): BP systolic 80–221; BP diastolic 37–74; PULSE 51–77; RESP 12–28; TEMP 36.7; O2SAT 92–98; BMI 31.3
--- NOTE | 2024-09-03 07:30 | XACV_ITS ---
Exam Room: 2 Ht: 170 cm Wt: 91 kg BSA: 2.10 m2 Gender: Female : 1950 Any Known Allergies: Other Exam Priority: Routine Procedure(s): Procedure Description: Diagnostic procedure Procedure Description: Left Heart Catheterization Procedure Description: Left ventriculography Procedure Description: Coronary Angiography Gisselle MARS; Diagnostic Cath Status: Elective Diagnostic Findings * Left Main has no disease. * Mid Left Anterior Descending: severe 90% stenosis, AISSATOU: 3 flow. * Ascending Aorta to Mid Left Anterior Descending graft: patent. * Proximal Circumflex: severe 90% stenosis, AISSATOU: 3 flow. * Mid Right Coronary Artery: severe 90% stenosis, AISSATOU: 3 flow. * Ascending Aorta to First Obtuse Marginal Branch Segment graft: patent. * Two grafts visualized. * Coronary angiography shows left dominance. Conclusions 1. There is severe coronary artery disease with three vessel disease. 2. Two coronary grafts visualized: all grafts patent. 3. All joel are normal. 4. Patient has prior CABG. 5. Normal left ventricular systolic function. Ejection fraction of 65%. Recommendations * Continue current medical management and risk factor modification. Diagnostic RX Recommendation: medical therapy and/or counseling Ventriculography Ejection Fraction: 65.0 % Pressures Phase:Rest AO : 204 / 60 ( 109 ) @ 10:29:00 AM 234 / 71 ( 133 ) @ 10:47:00 AM 228 / 71 ( 133 ) @ 10:48:00 AM LV : 230 / -6 / 23 @ 10:46:00 AM 235 / -5 / 25 @ 10:47:00 AM 240 / -3 / 31 @ 10:47:00 AM Valves Phase:DefaultPhase AV : 4.0 @ 9:54:04 AM AV Mean Gradient: 8.0 @ 9:54:04 AM Clinical Evaluation EBL: 5mL-10mL Procedural Details Procedure Consent Obtained. Pre-Procedure Time Out. Identified patient by full name and date of as verbalized by the patient/guarantor. Does the consent match the physician's order: Yes. Accurate & Complete Informed Consent: Yes. Inpatient/Outpatient History & Physical on Chart: Yes. If H&P is completed, is and addenduem needed: No. Visualize and Verify Site with Patient/Guarantor: N/A. Relevant Radiology Images available: Yes. The risks, benefits, and alternatives of sedation and/or procedure were discussed by physician. The patient agrees to continue. Procedure started. [facility] Clinical Fraility Score: 3: Managing Well. Home Comfort Advisor Indications: Suspected CAD. Chest Pain Symptom Assessment: Typical Angina Symptoms. Cardiovascular Instability: No. PERRLA. Strong, equal hand manager pest bilaterally. Lungs clear x 5 lobes. IV Site on Arrival: 20 gauge in the right forearm. IV Fluids: 0.9% NaCl at KVO. 0 mL infused prior to lab rep. Pre Procedural Pulses: bilateral dorsalis pedis was 3+. Pre Procedural Pulses: bilateral posterior tibial was 3+. Pre Procedural Pulses: bilateral radial was 3+. Oxygen started at 2liters/min via nasal canula. right groin was prepped with chloroprep then draped in the usual sterile fashion. right radial was prepped with chloroprep then draped in the usual sterile fashion. Physician notified. Patient's family in CPRU room #3. Dr. Pitts will update at the completion of the procedure.r. Equipment: 6F - Femoral. Cardiac Cath Pack. ACIST Manifold Kit Model BT 2000. Heparinized Saline (2 units/mL), 1000 mL bag. Kit, Micropuncture. Baseline sample Acquired. HR: 57 BPM. Physician arrived. Physician scrubbed in. Immediate Pre-Procedure Time Out. Correct Patient: Yes; Correct Procedure: Yes; Correct Site: Yes; Correct Patient Position: Yes; Correct Supplies: Yes; Dried Flammable Prep: Yes; Blood Products Available: N/A;. Lidocaine 1% infiltrated to the right groin. Arterial access obtained with micropuncture set. UInable to thread micropuncture wire. Wire and needle out. Dr. Pitts holding manual pressure. Arterial access obtained with micropuncture set. UInable to thread micropuncture wire. Wire and needle out. Dr. Pitts holding manual pressure. Arterial access obtained with micropuncture set. UInable to thread micropuncture wire. Wire and needle out. Dr. Pitts holding manual pressure. Arterial access obtained with micropuncture set. A Right femoral angiogram was performed to determine safe placement of closure device. A 5 chinese JL4 catheter in over the standard J wire. Multiple views taken of left coronary artery. Catheter removed over the standard J wire. A 5 chinese JR4 catheter in over wire. Cine of the RCA performed. Catheter redirected to the SVG -> OM. SVG's to OM visualized. Catheter redirected to the SVG -> LAD. SVG's to LAD visualized. Catheter redirected to the WHITTAKER. No WHITTAKER graft used. Catheter removed over the standard J wire. A 5 chinese Angled Pig catheter in over wire. EDP Sample taken: LV 230/-7,23; HR: 63 BPM; SpO2: 100%. LV gram performed in ATKINS @ 10 mL/second for a total of 30 mL. EDP Sample taken: LV 235/-6,25; HR: 66 BPM; SpO2: 99%. Pullback taken: LV 240/-4,31; AO 234/71(133); Mean: 8mmHg, Peak to Peak: 4mmHg, SEP: 30sec/min; HR: 76 BPM; SpO2: 98%. Catheter removed over the standard J wire. Physician scrubbed out. A Suture was successful obtaining hemostatsis at the Right Femoral artery insertion site. Sheath(s) sutured into position with 2-0 silk and sterile 4x4's and Op-site applied over the site. No oozing or signs and symptoms of hematoma noted. Arterial sheath flushed and connected to tranducer and pressure bag with heparinized saline. Post Procedure: Pulses reassessed and unchanged. PERRLA. Strong, equal hand manager pest bilaterally. No VTE prophylaxis required. Medication's Wasted: Heparin = 4000 untis. Medication's Wasted: Other = Fentanyl 25 mcg. Total IV fluids: 50 mL. Post-op diagnosis: non-obstructive CAD. Complications: none. Estimated blood loss: 5mL-10mL. Responsiveness - Normal response to verbal stimuli; alert and oriented, PERRLA. Airway - Unaffected, no intervention required; spontaneous ventilation. Circulation: W/N/L, pulses unchanged. Nausea/Vomiting: No. Procedure completed. Patient transferred by bed to 1st floor. Vital chart was stopped. Access Site Site: Right Femoral artery Sheath Size: 6 Fr Hemostasis Method: Suture Hemostasis Success: Successful Procedure Medications Start: 8:52 AM Stop: 8:52 AM Medication: Fentanyl Amount: 25 mcg Route: I.V. Start: 8:58 AM Stop: 8:58 AM Medication: Versed Amount: 1 mg Route: I.V. Start: 8:59 AM Stop: 8:59 AM Medication: Fentanyl Amount: 25 mcg Route: I.V. Start: 9:18 AM Stop: 9:18 AM Medication: Versed Amount: 1 mg Route: I.V. Start: 9:18 AM Stop: 9:18 AM Medication: Fentanyl Amount: 25 mcg Route: I.V. Start: 9:30 AM Stop: 9:30 AM Medication: Hydralazine Amount: 10 mg Route: I.V. Start: 9:48 AM Stop: 9:48 AM Medication: Hydralazine Amount: 10 mg Route: I.V. I, the attending physician, have reviewed and verified all procedure medications. Yes, all medications given per verbal order History/Risk Factors Hypertension: Yes Dyslipidemia: Yes Peripheral Arterial Disease (PAD): Yes Myocardial Infarction (AR): No Obesity: Yes Renal Disease: No Tobacco Use: Former Prior Interventions PCI: No CABG: Yes Valve Surgery: No Report Signatures Finalized by Sunni Pitts MD on 09/15/2024 01:02 AM
[2024-09-03] MEDS: diphenhydrAMINE 50 mg Capsule PO (08:15)
--- NOTE | 2024-09-03 09:01 | W.PM.OPSUD ---
Surgery/Procedure H&P Update DATE OF PROCEDURE: September 03, 2024 DATE H&P PERFORMED: 08/21/24 H&P UPDATE INFORMATION: I have reviewed H&P completed within last 30 days, I have examined patient prior to procedure and No changes to prior documentation PREOP DIAGNOSIS: Worsening of chest pain, angina, history of CABG PLANNED PROCEDURE: Operation Date: 09/03/24 08:30 Proposed Procedures p Cardiac Catheterization - C w/wo LV & Coros(Left) - Sunni Pitts MD PATIENT REASSESSED PRIOR TO SEDATION, WITH NO CHANGE NOTED: Yes PHYSICAL EXAM: alert, oriented x 3, clear to auscultation bilaterally and regular rate & rhythm AIRWAY EVAL/ANESTHESIA PLAN: ASA II, Risks, benefits & alternatives of sedation and/or procedure discussed and Patient agrees to continue as planned ADDITIONAL INFORMATION: Patient has been explained all risk-benefit and alternative for the procedure. Patient was sent 2% risk of stroke major bleed, patient understand 5% risk of hematoma bleeding bruising infection urgent or emergent bypass vascular surgery. Patient is a [employer] and would not like to take any blood product. She understand the risk of which could be higher than 2% in case of bleeding. She would like to proceed with it. She has excepted all the risks.
--- NOTE | 2024-09-03 10:30 | SUR.PHASEI ---
POST CATH NOTE Patient noted to have decreased pulse in the right lower extremity. C/O right leg discomfort and cramping. Dr Pitts notified of the findings. He states to pull the sheath now. Noted.
[2024-09-03] MEDS: fentaNYL 50 mcg/mL INJ 2mL IVP (10:35)
--- NOTE | 2024-09-03 10:41 | SUR.PHASEI ---
Fentanyl 50mcg wasted witnessed by Duane Reyez RN
--- NOTE | 2024-09-03 11:00 | SUR.PHASEI ---
SHEATH PULL Patient had minor bleed post sheath pull. MD in to assess and hold pressure. Hematoma formed during initial pull. Size approximately 12 cmx 5 cm in size. Manual massage was perfomred during the hold. Hemostasis time- 1050. Down Time- 6 hours. Plan up time- 1700 tonight. Family and patient aware of post cath instructions given to the patient and the family. They understood well. Vitals and assessments per flowsheet. Call light within reach. Informed to call for needs.
--- NOTE | 2024-09-03 11:54 | SUR.PHASEII ---
500 ml bolus given as ordered
--- NOTE | 2024-09-03 12:55 | PC.NURSE ---
received pt from geotechnical laboratory technician pt is alert,orientedx4. right groin check, has a bruising post hematoma, surrounding skin is soft and marked. pt denies any pain or discomfort except for upper belly pain. informed pt on activity restrictions post cath and to notify nurse for any unusual pain,numbness,bleeding or swelling to right groin area. call light provided to pt.
--- NOTE | 2024-09-03 17:25 | PC.NURSE ---
ambulated down hallways pt denies any pain,numbness or discomfort upon palpation on right leg or right groin. right groin areas are bruised and soft but no new hematoma or bleeding formation noted before and after ambulation. pedal pulses are palpable +3. Notified shearer screen measurer and trimmer.
--- NOTE | 2024-09-03 19:30 | PC.NURSE ---
Discharge to home w/ post angiogram home care instructions Educated pt on post angiogram home care instructions. Informed pt that she has to continue her home meds and follow up appointments with development analyst for next 3 to 4 weeks as telephone orders by Dr Pitts. Pt and family verbalizes understanding.
== END 2024-09-03 19:46 | disposition home or self-care (01) ==
LOC: CCL 07:34 → CSU 12:39
PROVIDERS: PCP Family Medicine; Visit Provider Internal Medicine Cardiovascular Disease
DX: I25.10 Atherosclerotic heart disease of native coronary artery without angina pectoris (principal); Z95.1 Presence of aortocoronary bypass graft; E78.5 Hyperlipidemia, unspecified; I73.9 Peripheral vascular disease, unspecified; E66.9 Obesity, unspecified; Z68.31 Body mass index [BMI] 31.0-31.9, adult; Z79.82 Long term (current) use of aspirin; K21.9 Gastro-esophageal reflux disease without esophagitis; Z87.891 Personal history of nicotine dependence; I12.9 Hypertensive chronic kidney disease with stage 1 through stage 4 chronic kidney disease, or unspecified chronic kidney disease; N18.30 Chronic kidney disease, stage 3 unspecified; E03.9 Hypothyroidism, unspecified
CPT/HCPCS: 36415; 93459; 96374; 99152; 99153; C1769; C1887; C1894; J0360; J1644; J2250; J3010; J7030; J9999; Q0163; Q9967

== ENCOUNTER → 2024-10-14 13:00 | Outpatient (BNVA) | payer MEDICARE, SELFPAY | PROVIDERS: PCP Family Medicine; Visit Provider Nurse Practitioner Family | DX: I25.10 Atherosclerotic heart disease of native coronary artery without angina pectoris (principal); I65.23 Occlusion and stenosis of bilateral carotid arteries; I73.9 Peripheral vascular disease, unspecified; I13.0 Hypertensive heart and chronic kidney disease with heart failure and stage 1 through stage 4 chronic kidney disease, or unspecified chronic kidney disease; N18.30 Chronic kidney disease, stage 3 unspecified; I50.9 Heart failure, unspecified; E78.5 Hyperlipidemia, unspecified; Z79.82 Long term (current) use of aspirin; Z95.1 Presence of aortocoronary bypass graft; Z87.891 Personal history of nicotine dependence | CPT/HCPCS: 99214 ==

== ENCOUNTER 2024-10-28 10:54 | Outpatient (CLI) | payer MEDICARE, SELFPAY ==
--- NOTE | 2024-10-28 11:00 | USR_ITS ---
PROCEDURE INFORMATION: Exam: US Duplex Bilateral Lower Extremity Arteries Exam date and time: 10/28/2024 11:33 AM Age: 74 years old Clinical indication: Pain; Leg, lower; Bilateral; Additional info: Claudication TECHNIQUE: Imaging protocol: Real-time ultrasound scan of the arteries of the bilateral lower extremities with 2-D gomes scale, color Doppler flow and spectral waveform analysis. Images documented and saved. COMPARISON: CR XR knees AP WB w RT lmt ORTH 08/29/2021 2:16 PM FINDINGS: Right common femoral artery: No occlusion or significant stenosis. Normal waveform. Right superficial femoral artery: No occlusion or significant stenosis. Normal waveform. Right popliteal artery: No occlusion or significant stenosis. Normal waveform. Right calf/foot arteries: No occlusion or significant stenosis in the visualized arteries. Normal waveforms. Dorsalis pedis artery is patent. Left common femoral artery: No occlusion or significant stenosis. Normal waveform. Left superficial femoral artery: No occlusion or significant stenosis. Normal waveform. Left popliteal artery: No occlusion or significant stenosis. Normal waveform. Left calf/foot arteries: No occlusion or significant stenosis in the visualized arteries. Normal waveforms. Dorsalis pedis artery is patent. Right GUSTAVO 1.0. Left GUSTAVO 1.1. There is elevated flow velocity in the left iliac artery compared to the right, 174 cm/s on the left, 72 cm/s on the right. This suggests stenosis near the origin of the iliac. Asymmetric brachial artery pulses, on the right 162/66, on the left 133/83. The possibility of subclavian artery stenosis exists. US/CV arterial duplex [facility] [id number] IMPRESSION: Findings suggesting stenosis at the origin of the left iliac artery. Possible stenosis of the right subclavian artery based on asymmetric blood pressures in the arms.
== END 2024-10-28 10:55 | disposition home or self-care (01) ==
PROVIDERS: PCP Family Medicine; Visit Provider Nurse Practitioner Family
DX: I73.9 Peripheral vascular disease, unspecified (principal)
CPT/HCPCS: 93925

== ENCOUNTER 2024-11-10 12:09 | Outpatient (CLI) | payer MEDICARE, SELFPAY ==
--- NOTE | 2024-11-10 12:30 | CTR_ITS ---
PROCEDURE INFORMATION: Exam: CTA Abdominal Aorta and Bilateral Lower Extremities (Run-off) With Contrast Exam date and time: 11/10/2024 12:42 PM Age: 74 years old Clinical indication: Abnormal findings; Abnormal diagnostic imaging exam; Abnormality: Abnormal left iliac velocity; Exam and body structure: Aduplebi; Prior surgery; Surgery date: 6+ months; Surgery type: Hernia, gb; Abnormal iliac left velocity; Additional info: Abnormal iliac velocity, left TECHNIQUE: Imaging protocol: Computed tomographic angiography of the of the abdominal aorta, pelvis and bilateral lower extremities with contrast. 3D rendering (Not supervised by radiologist): MIP and/or 3D reconstructed images were created by the technologist. Radiation optimization: All CT scans at this facility use at least one of these dose optimization techniques: automated exposure control; mA and/or kV adjustment per patient size (includes targeted exams where dose is matched to clinical indication); or iterative reconstruction. Contrast material: OMNIPAQUE 350; Contrast volume: 125 ml; Contrast route: INTRAVENOUS (IV); COMPARISON: CR XR KUB [id number] 02/20/2024 2:41 PM RADIATION DOSE METRICS: Total DLP (mGy-cm): 1658.67 FINDINGS: Aorta: No aortic aneurysm. No aortic dissection. Celiac trunk and mesenteric arteries: No occlusion or significant stenosis. Renal arteries: No occlusion or significant stenosis. Right iliac arteries: No occlusion or significant stenosis. Right femoral/popliteal arteries: No occlusion or significant stenosis. Right infrapopliteal arteries: No occlusion or significant stenosis. Left iliac arteries: No occlusion or significant stenosis. No explanation for the modestly elevated flow velocity in the left iliac artery seen on recent ultrasound. Left femoral/popliteal arteries: No occlusion or significant stenosis. Left infrapopliteal arteries: No occlusion or significant stenosis. Liver: No mass. Gallbladder and biliary ducts: Cholecystectomy. Pancreas: Unremarkable. No mass. No ductal dilation. Spleen: Normal. No splenomegaly. Adrenal glands: Normal. No mass. Kidneys and ureters: Normal. No mass. Stomach and bowel: Unremarkable. No obstruction. No mucosal thickening. Appendix: No evidence of appendicitis. Urinary bladder: Unremarkable. No mass. Reproductive: Unremarkable as visualized. Intraperitoneal space: Unremarkable. No free air. No significant fluid collection. Lymph nodes: No lymphadenopathy. Bones/joints: No acute fracture. No dislocation. Soft tissues: Unremarkable. CT/CT angio abd aorta runof [id number] IMPRESSION: 1. Unremarkable CTA abdomen, pelvis and lower extremities. 2. There are scattered atherosclerotic calcifications but no hemodynamically significant narrowing is observed.
[2024-11-10 12:38] LABS: Blood Urea Nitrogen 19 mg/dL (8-23)
[2024-11-10] MEDS: iohexol 350 mg/mL 500 mL Btl (per mL) IV (13:15)
== END 2024-11-10 12:10 | disposition home or self-care (01) ==
PROVIDERS: PCP Family Medicine; Visit Provider Nurse Practitioner Family
DX: I73.9 Peripheral vascular disease, unspecified (principal); Z90.49 Acquired absence of other specified parts of digestive tract; I70.90 Unspecified atherosclerosis
CPT/HCPCS: 75635; 82565; 84520

== ENCOUNTER → 2025-01-09 11:08 | Outpatient (BNVA) | payer MEDICARE, SELFPAY | PROVIDERS: PCP Family Medicine; Visit Provider Internal Medicine Cardiovascular Disease | DX: I25.10 Atherosclerotic heart disease of native coronary artery without angina pectoris (principal); I10 Essential (primary) hypertension; E78.5 Hyperlipidemia, unspecified; I27.20 Pulmonary hypertension, unspecified; I36.1 Nonrheumatic tricuspid (valve) insufficiency; I65.21 Occlusion and stenosis of right carotid artery; F32.A Depression, unspecified; Z79.82 Long term (current) use of aspirin; Z95.1 Presence of aortocoronary bypass graft; Z87.891 Personal history of nicotine dependence | CPT/HCPCS: 99214 ==

== ENCOUNTER → 2025-02-06 09:30 | Outpatient (BNVA) | payer MEDICARE, SELFPAY | PROVIDERS: PCP Family Medicine; Visit Provider Family Medicine | DX: I10 Essential (primary) hypertension (principal); E03.9 Hypothyroidism, unspecified; E78.5 Hyperlipidemia, unspecified; E55.9 Vitamin D deficiency, unspecified | CPT/HCPCS: 80053; 80061; 82306; 84443 ==

== ENCOUNTER 2025-04-24 12:58 | Outpatient (CLI) | payer MEDICARE, SELFPAY ==
--- NOTE | 2025-04-24 13:03 | XR_ITS ---
WS: [id number] XR shoulder LT min 2V* [id number] REASON FOR EXAM: fall on 04/19 w/ limited ROM since FINDINGS: No fracture or focal bone lesion. Acromioclavicular joint space is intact with moderate subchondral sclerosis and osteophytosis. There is mild to moderate narrowing of the glenohumeral joint space with mild to moderate subchondral sclerosis and osteophytosis of the acetabulum. Moderate sclerosis and cystic change in the greater biceps tuberosity. Minimal humeral head osteophytosis. 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 Moderate rotator cuff tendon arthropathy.
== END 2025-04-24 12:59 | disposition home or self-care (01) ==
PROVIDERS: PCP Family Medicine; Visit Provider Family Medicine
DX: S49.92XA Unspecified injury of left shoulder and upper arm, initial encounter (principal); X58.XXXA Exposure to other specified factors, initial encounter; M19.012 Primary osteoarthritis, left shoulder; M75.32 Calcific tendinitis of left shoulder
CPT/HCPCS: 73030